=== PATIENT | male | born 1990 | race Two or more races ===

== ENCOUNTER → 2021-09-12 | Emergency (ER) | payer BC, MEDICAID, OTHER ==
[~2021-09-12] VITALS: Ht 175.3 cm; Wt 70.3 kg
[2021-09-12 08:53] VITALS: BP 107/56
== END | disposition home or self-care (01) ==
LOC: ER 08:53
DX: S16.1XXA Strain of muscle, fascia and tendon at neck level, initial encounter (principal); S20.219A Contusion of unspecified front wall of thorax, initial encounter; R51.9 Headache, unspecified; M25.551 Pain in right hip; F17.210 Nicotine dependence, cigarettes, uncomplicated; J45.909 Unspecified asthma, uncomplicated; V43.62XA Car passenger injured in collision with other type car in traffic accident, initial encounter; Y93.89 Activity, other specified; Y92.410 Unspecified street and highway as the place of occurrence of the external cause; Y99.8 Other external cause status
CPT/HCPCS: 70450; 71250; 72125; 72192; 93005